=== PATIENT | male | born 1980 | race Caucasian/White ===

== ENCOUNTER 2023-03-15 04:58 | Emergency (ER) | payer SELFPAY ==
[2023-03-15 05:11] VITALS: BP 132/98; PULSE 114; RESP 18; O2SAT 95; BMI 30.3
--- NOTE | 2023-03-15 05:39 | ED.PSYCH1 ---
HPI - Psych General Chief Complaint: Psychiatric Symptoms Stated Complaint: SUDICAL Time Seen by Provider: 03/15/23 05:35 Source: Reports patient Mode of arrival: walk-in Limitations: Reports no limitations History of Present Illness HPI Narrative: Patient states he has relapsed. Drinking alcohol and using drugs (cocaine) . States last drink about 2 hours ago. States he was outside talking to the trees. He hears voices. Voices telling him to kill himself. Brought to the ER by his father. Related Data Allergies Allergy/AdvReac Type Severity Reaction Status Date / Time No Known Drug Allergies Allergy Verified 03/15/23 05:19 Review of Systems ROS Status of ROS 10 or more systems reviewed and unremarkable except as noted in history and below Exam Constitutional Vital Signs - 24 hr 03/15/23 05:11 Pulse Rate [Monitor] 114 H Respiratory Rate 18 Blood Pressure [Right Arm] 132/98 H Pulse Oximetry 95 Oxygen Delivery Method Room Air Common normals: no apparent distress, oriented x3 and alert General appearance: cooperative and well kempt HENMT Common normals: normocephalic and head/scalp atraumatic Eye Common normals: conjunctivae normal and no scleral icterus Respiratory Common normals: normal respiratory effort, no retractions, no use of accessory muscles and clear to auscultation bilaterally Cardio Common normals: regular rate, regular rhythm, S1 normal heart sound and S2 normal heart sound GI Common normals: non-tender Extremity Common normals: normal to inspection and full ROM Neuro Common normals: oriented x3, moves all extremities and no focal motor deficits Psych Common normals: cooperative Attitude: calm Activity/motor behavior: appropriate eye contact Speech: normal speech Memory/cognition: memory grossly intact Insight: fair Course Vital Signs Vital signs: Vital Signs Pulse Rate 114 H 03/15/23 05:11 Respiratory Rate 18 03/15/23 05:11 Blood Pressure 132/98 H 03/15/23 05:11 Pulse Oximetry 95 03/15/23 05:11 Oxygen Delivery Method Room Air 03/15/23 05:11 Pulse Rate 114 H 03/15/23 05:11 Respiratory Rate 18 03/15/23 05:11 Blood Pressure 132/98 H 03/15/23 05:11 Pulse Oximetry 95 03/15/23 05:11 Oxygen Delivery Method Room Air 03/15/23 05:11 MDM - Psych MDM Narrative Medical decision making narrative: polysubstance abuse including alcohol, metamphetamine, cocaine. presents with history of hallucinations and suicide. He states he relapsed. Workup initiated and care transferred to oncoming physician at [facility]. Lab Data Labs: Lab Results 03/15/23 Range/Units 05:35 WBC 7.9 (4.0-11.0) 10^3/uL RBC 5.80 (4.70-6.10) 10^6/uL Hgb 16.1 (14.0-18.0) g/dL Hct 47.4 (42.0-54.0) % MCV 81.7 (80.0-94.0) fL MCH 27.8 (25.9-34.0) pg MCHC 34.0 (29.9-35.2) g/dL RDW 14.8 (11.0-15.0) % Plt Count 275 (150-450) 10^3/uL MPV 9.1 L (9.5-13.5) fL Neut % (Auto) 66.5 (43.0-75.0) % Lymph % (Auto) 22.7 (20.5-60.0) % Bailey % (Auto) 8.3 (1.7-12.0) % Eos % (Auto) 1.5 (0.9-7.0) % Baso % (Auto) 0.5 (0.2-2.0) % Neut # (Auto) 5.3 (1.4-6.5) 10^3/uL Lymph # (Auto) 1.8 (1.2-3.8) 10^3/uL Bailey # (Auto) 0.7 (0.3-0.8) 10^3/uL Eos # (Auto) 0.1 (0.0-0.7) 10^3/uL Baso # (Auto) 0.0 (0.0-0.1) 10^3/uL Abs Immat Gran (auto) 0.04 H (0.00-0.03) 10^3/uL Imm/Tot Granulo (auto) 0.5 (0.0-0.5) % PT 10.7 (9.0-11.6) sec INR 1.01 Sodium 137 (136-145) mmol/L Potassium 4.0 (3.5-5.1) mmol/L Chloride 103 (98-107) mmol/L Carbon Dioxide 28.1 (21.0-32.0) mmol/L Anion Gap 9.9 BUN 5.0 L (7.0-18.0) mg/dL Creatinine 1.39 H (0.70-1.30) mg/dL Est GFR ( Amer) >60 (>=60) Est GFR (Non-Af Amer) 56 L (>=60) BUN/Creatinine Ratio 3.6 Glucose 98 (74-106) mg/dL Calcium 9.0 (8.5-10.1) mg/dL Magnesium 2.1 (1.8-2.4) mg/dL Total Bilirubin 0.5 (0.2-1.0) mg/dL AST 20 (15-37) U/L ALT 25 (16-63) U/L Alkaline Phosphatase 79 (46-116) U/L Ammonia 54 H* (11-32) umol/L Total Protein 7.5 (6.4-8.2) g/dL Albumin 3.5 (3.4-5.0) g/dL Globulin 4.0 g/dL Albumin/Globulin Ratio 0.9 Salicylates <2.8 (<=19.9) mg/dL Urine Opiates Screen Negative (NEGATIVE) Ur Buprenorphine Scrn Negative (NEGATIVE) Ur Oxycodone Screen Negative (NEGATIVE) Urine Methadone Screen Negative (NEGATIVE) Ur Propoxyphene Screen Negative (NEGATIVE) Acetaminophen <2.0 L (10.0-30.0) ug/mL Ur Barbiturates Screen Negative (NEGATIVE) U Tricyclic Antidepress Negative (NEGATIVE) Ur Phencyclidine Scrn Negative (NEGATIVE) Ur Amphetamines Screen Positive A (NEGATIVE) U Methamphetamines Scrn Positive A (NEGATIVE) U Benzodiazepines Scrn Positive A (NEGATIVE) Urine Cocaine Screen Positive A (NEGATIVE) U Cannabinoids Screen Negative (NEGATIVE) Ethanol Quant 101 mg/dL Discharge Plan Discharge Chief Complaint: Psychiatric Symptoms Clinical Impression: Acute psychosis, Polysubstance abuse Referrals: Physician,Non-Staff, [Primary Care Provider] - 1 week
--- NOTE | 2023-03-15 05:45 | ECG_ITS ---
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
[2023-03-15 06:05] LABS: Basophils Percent Auto 0.5 % (0.2-2.0); Eosinophils Absolute Auto 0.1 10^3/uL (0.0-0.7); Eosinophils Percent Auto 1.5 % (0.9-7.0); Hematocrit 47.4 % (42.0-54.0); Hemoglobin 16.1 g/dL (14.0-18.0); Immature Granulocytes Abs Auto 0.04 10^3/uL (0.00-0.03); Immature Granulocytes Pct Auto 0.5 % (0.0-0.5); Lymphocytes Absolute Auto 1.8 10^3/uL (1.2-3.8); Lymphocytes Percent Auto 22.7 % (20.5-60.0); Mean Corpuscular Hemoglobin 27.8 pg (25.9-34.0); Mean Corpuscular Volume 81.7 fL (80.0-94.0); Mean Platelet Volume 9.1 fL (9.5-13.5); Monocytes Absolute Auto 0.7 10^3/uL (0.3-0.8); Monocytes Percent Auto 8.3 % (1.7-12.0); Neutrophils Absolute Auto 5.3 10^3/uL (1.4-6.5); Neutrophils Percent Auto 66.5 % (43.0-75.0); Platelet Count 275 10^3/uL (150-450); Red Cell Distribution Width 14.8 % (11.0-15.0); White Blood Count 7.9 10^3/uL (4.0-11.0)
[2023-03-15 06:12] LABS: INR 1.01; Prothrombin Time 10.7 sec (9.0-11.6)
[2023-03-15 06:14] LABS: Alanine Aminotransferase 25 U/L (16-63); Albumin Globulin Ratio 0.9; Albumin Level 3.5 g/dL (3.4-5.0); Alkaline Phosphatase 79 U/L (46-116); Anion Gap 9.9; Aspartate Amino Transferase 20 U/L (15-37); BUN Creatinine Ratio 3.6; Bilirubin Total 0.5 mg/dL (0.2-1.0); Carbon Dioxide 28.1 mmol/L (21.0-32.0); Chloride 103 mmol/L (98-107); Estimated GFR (African America >60 (>=60); Estimated GFR (Non-African Ame 56 (>=60); Ethanol 101 mg/dL; Glucose 98 mg/dL (74-106); Magnesium 2.1 mg/dL (1.8-2.4); Salicylate <2.8 mg/dL (<=19.9); Sodium 137 mmol/L (136-145); Total Protein 7.5 g/dL (6.4-8.2)
[2023-03-15 06:21] LABS: Acetaminophen <2.0 ug/mL (10.0-30.0)
[2023-03-15 06:24] LABS: Amphetamine Screen Urine POSITIVE (NEGATIVE); Barbiturates Screen Urine NEGATIVE (NEGATIVE); Benzodiazepines Screen Urine POSITIVE (NEGATIVE); Buprenorphine Screen Urine NEGATIVE (NEGATIVE); Cannabinoid Screen Urine NEGATIVE (NEGATIVE); Cocaine Screen Urine POSITIVE (NEGATIVE); Methadone Screen Urine NEGATIVE (NEGATIVE); Methamphetamines Screen Urine POSITIVE (NEGATIVE); Opiate Screen Urine NEGATIVE (NEGATIVE); Oxycodone Screen Urine NEGATIVE (NEGATIVE); Phencyclidine Screen Urine NEGATIVE (NEGATIVE); Tricyclic Antidepressant Urine NEGATIVE (NEGATIVE)
[2023-03-15 06:30] LABS: Ammonia 54 umol/L (11-32)
--- NOTE | 2023-03-15 07:15 | PC.NURSE ---
PT VIDEO-CHATTING WITH DANE FROM [facility] AT THIS TIME
[2023-03-15 07:34] VITALS: RESP 18; O2SAT 100
[2023-03-15 09:42] VITALS: RESP 16; O2SAT 100
[2023-03-15 11:41] VITALS: BP 122/82; PULSE 87; RESP 16; O2SAT 97
== END 2023-03-15 13:45 ==
PROVIDERS: Emergency Provider Internal Medicine
DX: F23 Brief psychotic disorder (principal); F32.9 Major depressive disorder, single episode, unspecified; F10.10 Alcohol abuse, uncomplicated; F15.10 Other stimulant abuse, uncomplicated; F14.10 Cocaine abuse, uncomplicated
CPT/HCPCS: 36415; 80053; 80179; 80307; 80320; 80329; 82140; 83735; 85025; 85610; 93005; 99285

== ENCOUNTER 2023-04-26 10:45 | Emergency (ER) | payer MEDICAID, SELFPAY ==
[2023-04-26 10:47] VITALS: BP 133/86; PULSE 100; RESP 18; TEMP 36.4; O2SAT 97; BMI 30.7
[2023-04-26 10:51] VITALS: BP 133/86
--- NOTE | 2023-04-26 11:22 | ECG_ITS ---
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
[2023-04-26 11:36] VITALS: PULSE 96; RESP 21
[2023-04-26] MEDS: 0.9 % SODIUM CHLORIDE 1,000 ML 999 ML IV (11:41)
[2023-04-26 11:45] LABS: Basophils Percent Auto 0.5 % (0.2-2.0); Eosinophils Absolute Auto 0.1 10^3/uL (0.0-0.7); Eosinophils Percent Auto 1.3 % (0.9-7.0); Hematocrit 47.6 % (42.0-54.0); Hemoglobin 16.2 g/dL (14.0-18.0); Immature Granulocytes Abs Auto 0.04 10^3/uL (0.00-0.03); Immature Granulocytes Pct Auto 0.5 % (0.0-0.5); Lymphocytes Absolute Auto 1.2 10^3/uL (1.2-3.8); Lymphocytes Percent Auto 14.2 % (20.5-60.0); Mean Corpuscular Volume 82.2 fL (80.0-94.0); Mean Platelet Volume 8.4 fL (9.5-13.5); Monocytes Absolute Auto 0.5 10^3/uL (0.3-0.8); Monocytes Percent Auto 5.5 % (1.7-12.0); Neutrophils Absolute Auto 6.8 10^3/uL (1.4-6.5); Platelet Count 254 10^3/uL (150-450); Red Blood Count 5.79 10^6/uL (4.70-6.10); Red Cell Distribution Width 13.2 % (11.0-15.0); White Blood Count 8.7 10^3/uL (4.0-11.0)
[2023-04-26 11:52] LABS: Anion Gap 9.1; BUN Creatinine Ratio 7.7; Calcium 8.5 mg/dL (8.5-10.1); Carbon Dioxide 28.4 mmol/L (21.0-32.0); Chloride 102 mmol/L (98-107); Estimated GFR (African America >60 (>=60); Estimated GFR (Non-African Ame 50 (>=60); Glucose 92 mg/dL (74-106); Potassium 4.5 mmol/L (3.5-5.1); Sodium 135 mmol/L (136-145)
[2023-04-26 12:00] VITALS: PULSE 91; RESP 19; O2SAT 95
--- NOTE | 2023-04-26 12:06 | ED_ITS ---
HPI - General Adult General Chief complaint: Dizziness Stated complaint: POSS. DEHYRDRATION/SHAKY Time Seen by Provider: 04/26/23 11:00 Source: patient Mode of arrival: walk-in Limitations: no limitations History of Present Illness HPI narrative: working in a hot environment all week and then drank a 12 pack of beer this weekend. Now he feels dehydrated - vague dizziness when standing quickly and dried out . he drank 2 bottles of electrolyte solution this morning but didn't feel any better. No headache, blurred vision, tinnitis, ear pain, sore throat or cough. No muscle aches, abdominal pain, N/V/D. No recent fall or injury. Related Data Home Medications Medication Instructions Recorded Confirmed buspirone 5 mg tablet 5 mg PO BID 04/26/23 04/26/23 hydroxyzine HCl 10 mg tablet 10 mg PO Q8H 04/26/23 04/26/23 hydroxyzine pamoate 25 mg capsule 25 mg PO BID 04/26/23 04/26/23 (Vistaril) Allergies Allergy/AdvReac Type Severity Reaction Status Date / Time No Known Drug Allergies Allergy Verified 03/15/23 05:19 Exam Narrative Exam Narrative: Nurses notes and vital signs reviewed and patient is not hypoxic. afebrile General: Well-appearing and in no apparent distress. Skin: Warm, dry, no pallor noted. No rash. Eye: Pupils are equal, round and EOMI. No scleral icterus. Ears, Nose, Mouth, and Throat: Oral mucosa is dry Cardiovascular: Regular Rate and Rhythm without murmur, gallop or rub. Respiratory: No accessory muscle use or respiratory distress. Lungs are clear to auscultation, no wheezing, rales or rhonchi Musculoskeletal: normal ROM, no calf or popliteal tenderness, no lower extremity edema/swelling GI: Abdomen is soft, non-distended. Normal bowel sounds. No tenderness to palpation. No rebound, guarding, or rigidity noted. Neurological: A&O x4. No cranial nerve dysfunction observed. No truncal ataxia. Moves all extremities. Sensation intact. Psychiatric: Cooperative and interactive. Normal mood and affect. Constitutional Vital Signs, click to edit/add: Last Vital Signs Temp 97.6 F 04/26/23 10:47 Pulse 100 H 04/26/23 10:47 Resp 18 04/26/23 10:47 BP 133/86 04/26/23 10:47 Pulse Ox 97 04/26/23 10:47 O2 Del Method Room Air 04/26/23 10:47 Course Vital Signs Vital signs: Vital Signs Temperature 97.6 F 04/26/23 10:47 Pulse Rate 100 H 04/26/23 10:47 Respiratory Rate 18 04/26/23 10:47 Blood Pressure 133/86 04/26/23 10:47 Pulse Oximetry 97 04/26/23 10:47 Oxygen Delivery Method Room Air 04/26/23 10:47 Temperature 97.6 F 04/26/23 10:47 Pulse Rate 100 H 04/26/23 10:47 Respiratory Rate 18 04/26/23 10:47 Blood Pressure 133/86 04/26/23 10:47 Pulse Oximetry 97 04/26/23 10:47 Oxygen Delivery Method Room Air 04/26/23 10:47 Medical Decision Making MDM Narrative Medical decision making narrative: peripheral IV established and blood drawn and sent for testing. The patient received normal saline IV fluid. EKG and blood tests were fairly unremarkable. He had slight elevation of his creatinine. He was informed of results and discharged home with recommendation to avoid alcohol and increase his water intake Lab Data Lab results reviewed: Yes I reviewed the patient's lab results Labs: Lab Results 04/26/23 Range/Units 11:33 WBC 8.7 (4.0-11.0) 10^3/uL RBC 5.79 (4.70-6.10) 10^6/uL Hgb 16.2 (14.0-18.0) g/dL Hct 47.6 (42.0-54.0) % MCV 82.2 (80.0-94.0) fL MCH 28.0 (25.9-34.0) pg MCHC 34.0 (29.9-35.2) g/dL RDW 13.2 (11.0-15.0) % Plt Count 254 (150-450) 10^3/uL MPV 8.4 L (9.5-13.5) fL Neut % (Auto) 78.0 H (43.0-75.0) % Lymph % (Auto) 14.2 L (20.5-60.0) % [place] % (Auto) 5.5 (1.7-12.0) % Eos % (Auto) 1.3 (0.9-7.0) % Baso % (Auto) 0.5 (0.2-2.0) % Neut # (Auto) 6.8 H (1.4-6.5) 10^3/uL Lymph # (Auto) 1.2 (1.2-3.8) 10^3/uL [place] # (Auto) 0.5 (0.3-0.8) 10^3/uL Eos # (Auto) 0.1 (0.0-0.7) 10^3/uL Baso # (Auto) 0.0 (0.0-0.1) 10^3/uL Abs Immat Gran (auto) 0.04 H (0.00-0.03) 10^3/uL Imm/Tot Granulo (auto) 0.5 (0.0-0.5) % Sodium 135 L (136-145) mmol/L Potassium 4.5 (3.5-5.1) mmol/L Chloride 102 (98-107) mmol/L Carbon Dioxide 28.4 (21.0-32.0) mmol/L Anion Gap 9.1 BUN 12.0 (7.0-18.0) mg/dL Creatinine 1.55 H (0.70-1.30) mg/dL Est GFR ( Amer) >60 (>=60) Est GFR (Non-Af Amer) 50 L (>=60) BUN/Creatinine Ratio 7.7 Glucose 92 (74-106) mg/dL Calcium 8.5 (8.5-10.1) mg/dL ECG Data Interpretation: EKG interpretation: Emergency Department physician interpretation. Normal sinus rhythm at 94bpm. Normal axis, normal intervals and non-specific T wave changes with no ST segment elevation or depression. Discharge Plan Discharge Chief Complaint: Dizziness Clinical Impression: Dehydration Patient Disposition: Home, Self-Care Time of Disposition Decision: 12:10 Prescriptions / Home Meds: No Action hydroxyzine pamoate [Vistaril] 25 mg capsule 25 mg PO BID buspirone 5 mg tablet 5 mg PO BID hydroxyzine HCl 10 mg tablet 10 mg PO Q8H Instructions: Dehydration (ED) Stand Alone Forms: Portal Instructions Referrals: Physician,Non-Staff, MD [Primary Care Provider] - 1 week
== END 2023-04-26 12:32 | disposition home or self-care (01) ==
PROVIDERS: Emergency Provider Emergency Medicine
DX: E86.0 Dehydration (principal); Z79.899 Other long term (current) drug therapy
CPT/HCPCS: 36415; 80048; 85025; 93005; 99284

== ENCOUNTER 2025-04-02 11:51 | Emergency (ER) | payer OTHER, SELFPAY ==
[2025-04-02 11:55] VITALS: BP 134/76; PULSE 69; TEMP 36.3; O2SAT 95; BMI 34.9
--- OUTSIDE RECORDS SUMMARY | 2025-04-02 12:07 | XMS_ITS | Clinical Summary ---
Author Organization [facility] Address [address] [place] [address] Care Team Providers Care Lane Marker Installer Name Role Phone Pcp, No MD Primary Care Provider Unavailabl e Allergies No known active allergies Medications azithromycin (ZITHROMAX) 250 mg tablet 500mg PO on Day #1, then 250mg PO QD on Day #2--5 6 tablet 9 Active cetirizine (ZyrTEC) 10 mg tablet Take 1 tablet (10 mg) by mouth daily for 7 days. 7 tablet 9 Active mometasone (NASONEX) 50 mcg/actuation nasal spray 2 sprays into each nostril daily for 14 days. 1 Bottle 9 Active ibuprofen (ADVIL,MOTRIN) 600 mg tablet Take 1 tablet (600 mg) by mouth 4 (four) times a day as needed for mild pain or moderate pain. 20 tablet 9 Active naproxen (NAPROSYN) 500 mg tablet Take 1 tablet (500 mg) by mouth every 8 (eight) hours as needed for mild pain or moderate pain 30 tablet 1 Active cyclobenzaprine (FLEXERIL) 10 mg tablet Take 1 tablet (10 mg) by mouth 3 (three) times a day as needed for muscle spasms 30 tablet 1 Active promethazine (PHENERGAN) 25 mg tabletIndications:V iral gastroenteritis Take 1 tablet (25 mg) by mouth every 6 (six) hours as needed for nausea or vomiting for up to 5 days 10 tablet 4 Active Social History Tobacco Use Types Packs/Day Years Used Date Smoking Tobacco: Every Day Smokeless Tobacco: Never Alcohol Use Standard Drinks/Week Comments No 0 (1 standard drink = 0.6 oz pur e alcohol) former Intimate Partner Violence Answer Date R ecorded Fear of Current or Ex-Partner Not asked Emotionally Abused Not asked 12/01/2020 Physically Abused Not asked 12/01/2020 Sexually Abused Not asked 12/01/2020 Social Connections Answer Date Recorded Frequency of Communication with Friends and Fami ly Not asked 12/01/2020 Frequency of Social Gatherings with Friends and Family Not asked 12/01/2020 Housing Stability Answer Date Recorded Was there a time when you di d not have a steady place to sleep Unrecognized value 11/21/[address] you a re staying is making you sick Unrecognized value 11/21/2021 Sex and Gender Information Value Date Recorded Sex Assigned at Not on file Legal Sex Male 10:10 AM EDT Gender Identity Not on file Sexual Orientation Not on file Last Filed Vital Signs Vital Sign Reading Time Taken Comments Blood Pressure 130/90 07/18/2024 12:11 PM EST Pulse 85 07/18/2024 12:11 PM EST Temperature 36.7 C (98 F) 07/18/2024 12:11 PM EST Respiratory Rate 20 07/18/2024 12:11 PM EST Oxygen Saturation 98% 07/18/2024 12:11 PM EST Inhaled Oxygen Concentration - - Weight 112 kg (247 lb) 07/18/2024 12:11 PM EST Height 180.3 cm (5' 11 ) 07/18/2024 12:11 PM EST Body Mass Index 34.45 07/18/2024 12:11 PM EST Plan of Treatment Health Maintenance Due Date Last Done Comments Hepatitis C Screening 1980 SDOH Part 1 1980 Adult Tdap 2000 Hepatitis B Vaccines (1 of 3 - 19+ 3-dose series) 2000 Pneumococcal (1 of 2 - PCV) 2000 HPV Vaccine (1 - 3-dose SCDM series) 2008 COVID-19 Vaccine ( - season) 2024, 12/24/2020 Depression Screening 09/14/2024 Tobacco Screening 09/14/2024 Influenza Vaccine (#1) 2025 Zoster Vaccine (1 of 2) 2031 Insurance [employer]BS [employer] PREFERRED BLUE [id number] Care Teams [address] Marker Installer Relationship Specialty Start Date End Date Pcp, Chloe, [place] [address] PCP - General 09/30/18
--- OUTSIDE RECORDS SUMMARY | 2025-04-02 12:07 | XMS_ITS | Encounter Summary ---
Author Organization [facility] Address [address] [place] [address] Care Team Providers Care First Aid Attendant Name Role Phone Pcp, No Primary Care Provider Unavailabl e Encounter Details Date Type Department Care Team (Late st Contact Info) Description 08/19/2024 [facility] [address] [place] [address] Provider, Med History Social History Tobacco Use Types Packs/Day Years Used Date Smoking Tobacco: Never Smokeless Tobacco: Never Alcohol Use Standard Drinks/Week Comments Never 0 (1 standard drink = 0.6 oz pur e alcohol) AUDIT-C Answer Date Recorded Q1: How often do you have a drink containing alcohol? Never 08/18/2024 Q2: How many drinks containi ng alcohol do you have on a typical day when you are drinking? Patient does not drink Q3: How often do you have si x or more drinks on one occasion? Never 08/18/2024 Sex and Gender Information Value Date Recorded Sex Assigned at Not on file Legal Sex Male 10:43 AM EDT Gender Identity Not on file Sexual Orientation Not on file documented as of this encounter Plan of Treatment Not on file documented as of this encounter Procedures Procedure Name Priority Date/Time Associated Diagnosis Comments [facility] ED DISCHARGE CALL 08/19/2024 2:10 PM EST documented in this encounter Results * ED Discharge Call (08/19/2024 2:10 PM EST) Outreach Action Voice Call 1 [facility] Call Attempt 4 [facility] Status incomplete [facility] 08/19/2024 2:10 PM EST us Med History Provider [facility] FOLLOW UP CALL Final Result [facility] Ale[address] [place] [address] documented in this encounter Visit Diagnoses Not on filedocumented in this encounter Care Teams First Aid Attendant Relationship Specialty Start Date End Date Pcp, No PCP - General 07/06/24 documented as of this encounter
--- OUTSIDE RECORDS SUMMARY | 2025-04-02 12:07 | XMS_ITS | Encounter Summary ---
Author Organization [facility] Address [address] [place] [address] Care Team Providers Care Senior Manufacturing Test Engineer Name Role Phone Pcp, No Primary Care Provider Unavailabl e Encounter Details Date Type Department Care Team (Late st Contact Info) Description 08/19/[facility] [address] [place] [address] Provider, Med History Social History Tobacco Use [...] Diagnosis Comments [facility] ED DISCHARGE CALL 08/19/2024 9:11 AM EST documented in this encounter Results * ED Discharge Call (08/19/2024 9:11 AM EST) Outreach Action Voice Call 1 [facility] Call Attempt 2 [facility] Status incomplete [facility] 08/19/2024 9:11 AM EST us Med History Provider CIPHER FOLLOW UP CALL Final Result [facility] Aleisha [address] [place] [address] documented in this encounter Visit Diagnoses Not on filedocumented in this encounter Care Teams Senior Manufacturing Test Engineer Relationship Specialty Start Date End Date Pcp, No PCP - General 07/06/24 documented as of this encounter
--- OUTSIDE RECORDS SUMMARY | 2025-04-02 12:07 | XMS_ITS | Clinical Summary ---
Author Organization [facility] tem Address [id number] [address] [place] [address] Care Team Providers Care Manager Video Name Role Phone No Pcp, No Pcp Primary Care Provider Unavailabl e Allergies No known active allergies Medications No known medications Social History Tobacco Use Types Packs/Day Years Used Date Smoking Tobacco: Never Smokeless Tobacco: Never Tobacco Cessation:Counseling Given: Not Answered Alcohol Use Standard Drinks/Week Comments Yes 0 (1 standard drink = 0.6 oz pur e alcohol) Childcare Answer Date Recorded Childcare Unknown 02/23/2019 Employment Answer Date Recorded Employment Unknown 02/23/2019 Hunger Screening Answer Date Recorded Within the past 12 months we worried whether our food would run out before we got money to buy more. Never True 05/04/2023 Within the past 12 months th e food we bought just didn't last and we didn't have money to get more. Never True 05/04/2023 Sex and Gender Information Value Date Recorded Sex Assigned at Not on file Legal Sex Male 11:56 AM EDT Gender Identity Not on file Sexual Orientation Not on file Last Filed Vital Signs Vital Sign Reading Time Taken Comments Blood Pressure 126/70 05/04/2023 7:00 PM EDT Pulse 111 05/04/2023 7:00 PM EDT Temperature 36.7 C (98.1 F) 05/04/2023 3:44 PM EDT Respiratory Rate 24 05/04/2023 7:00 PM EDT Oxygen Saturation 94% 05/04/2023 7:00 PM EDT Inhaled Oxygen Concentration - - Weight 99.8 kg (220 lb) 05/04/2023 3:44 PM EDT Height - - Body Mass Index - - Plan of Treatment Not on file Medical Devices Not on file Insurance [place] [facility] Care Teams Manager Video Relationship Specialty Start Date End Date No Pcp, [place] [id number] PCP - General Family Medicine 05/04/23
--- OUTSIDE RECORDS SUMMARY | 2025-04-02 12:07 | XMS_ITS | Clinical Summary ---
Author Organization [facility] Address [address] [place] [address] Care Team Providers Care Acid Changer Name Role Phone Pcp, No Primary Care Provider Unavailabl e Allergies No known active allergies Social History Tobacco Use Types Packs/Day Years Used Date Smoking Tobacco: Never Smokeless Tobacco: Never Tobacco Cessation:Counseling Given: Not Answered Alcohol Use Standard Drinks/Week Comments Never 0 [...] Sign Reading Time Taken Comments Blood Pressure 128/84 08/18/2024 5:27 PM EST Pulse 80 08/18/2024 5:27 PM EST Temperature 36.9 C (98.4 F) 08/18/2024 5:27 PM EST Respiratory Rate 18 08/18/2024 5:27 PM EST Oxygen Saturation 98% 08/18/2024 7:33 PM EST Inhaled Oxygen Concentration - - Weight - - Height - - Body Mass Index - - Plan of Treatment Health Maintenance Due Date Last Done Comments COVID-19 Vaccine (2023-2 5 season) 2024 09/11/2021, 01/04/2021, 12/24/2020 Influenza Vaccine (#1) 2025 2, 07/08/2021 Pneumococcal 6-49 years Aged Out 09/14/2000 No l lilyger eligible based on patient's age to complete this topic Insurance [employer] Care Teams Acid Changer Relationship Specialty Start Date End Date Pcp, No PCP - General 07/06/24
--- OUTSIDE RECORDS SUMMARY | 2025-04-02 12:07 | XMS_ITS | Clinical Summary ---
Author Organization [facility] Address [address] [place] [address] Care Team Providers Care Auto Rental Supervisor Name Role Phone Amisha Raymundo Primary Care Provider [phone] Source Comments PLEASE NOTE, if this patient is a minor, it may be UNLAWFUL to discuss sensitive information that is contained in these records (such as FAMILY PLANNING, MENTAL HEALTH or SUBSTANCE ABUSE) with the minor patient's parent or other person without the patient's specific authorization.[facility] Allergies No known active allergies Medications hydrOXYzine HCL (ATARAX) 50 mg tabletIndications: Anxiety state Take 1 Tablet by mouth 3 (three) times daily as needed for anxiety 270 Tablet 1 5 Active pravastatin (PRAVACHOL) 40 mg tabletIndications: Mixed hyperlipidemia Take 1 Tablet by mouth once daily 90 Tablet 1 5 Active lisinopriL 20 mg tabletIndications: Essential hypertension Take 1 Tablet by mouth once daily 90 Tablet 1 5 Active amLODIPine (NORVASC) 10 mg tabletIndications: Essential hypertension Take 1 Tablet by mouth once daily 90 Tablet 1 5 Active testosterone (ANDROGEL) 20.25 mg/1.25 gram (1.62 %) gel pumpIndications: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 90 Tablet 1 5 Active sertraline (ZOLOFT) 50 mg tabletIndications: Anxiety state Take 1 Tablet by mouth once daily 90 Tablet 1 5 025 Discontinu ed(Reorder (E-Cancel Not Sent)) naproxen (NAPROSYN) 500 mg tabletIndications: Chronic right-sided low back pain without sciatica Take 1 Tablet by mouth 2 (two) times daily with a meal for 14 days. 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 ([facility] V24) 12/14/2020 Essential hypertension 12/30/2019 Anxiety and depression 12/30/2019 Encounters Date Type Department Care Team Description 03/13/2025 4:00 PM EDT Office Visit [address] [id number] [place] 03/13/2025 Travel from Last 3 Months Immunizations Immunization Administration Dates Next Due Hep A, adult 12/26/2019 PFIZER COVID VACCINE, PURPLE CAP, 12+ 01/04/2021 ,12/24/2020 PNEUMOCOCCAL, UNSPECIFIED FORMULATION 09/14/2000 Tetanus Toxoid, Absorbed 09/14/2000 Family History Medical History Relation Name Comments Alcohol/Drug Abuse Brother Alcohol/Drug Abuse Father Depression Father Alcohol/Drug Abuse Mother Depression Mother Relation Name Status Comments Brother Father Mother Social History Tobacco Use Types Packs/Day Years Used Date Smoking Tobacco: Former Cigarettes 0 01/18/2020 - 01/17/2021 Passive Smoke Exposure: Never Smokeless Tobacco: Never Tobacco Cessation:Counseling Given: Not Answered Alcohol Use Standard Drinks/Week Comments Not Currently 0 (1 standard drink = 0.6 oz pur e alcohol) Social Connections Answer Date Recorded Connectedness 0 06/18/2024 Financial Resource Strain Answer Date R ecorded Financial Resource Strain 0 2018 Stress Answer Date Recorded Stress 0 2019 Physical Activity Answer Date Recorded Physical Activity 0 2019 Food Insecurity Answer Date Recorded Food 0 06/09/2024 Transportation Needs Answer Date Record ed Transportation 0 2019 Housing Stability Answer Date Recorded Housing 0 2019 Safety and Environment Answer Date Fernando rded Safety 0 2019 Utilities Answer Date Recorded Utilities 0 2019 Employment Answer Date Recorded Stress 0 06/18/2024 Sex and Gender Information Value Date Recorded Sex Assigned at Male 2019 11:47 AM PST Legal Sex Male 6:30 AM PST Gender Identity Male 2019 11:15 AM PST Sexual Orientation Straight 2019 11 :15 AM PST Last Filed Vital Signs Vital Sign Reading Time Taken Comments Blood Pressure 128/82 03/13/2025 3:51 PM EDT Pulse 77 03/13/2025 3:51 PM EDT Temperature 36 C (96.8 F) 03/13/2025 3:51 PM EDT Respiratory Rate 19 03/13/2025 3:51 PM EDT Oxygen Saturation 94% 03/13/2025 3:51 PM EDT Inhaled Oxygen Concentration - - Weight 115.9 kg (255 lb 9.6 oz) 03/13/2025 3:51 PM EDT Height 180.3 cm (5' 11 ) 11/25/2024 4:34 PM EDT Body Mass Index 35.65 11/25/2024 4:34 PM EDT Plan of Treatment Upcoming Encounters Date Type Department Care Team (Late st Contact Info) Description 04/12/2025 4:00 PM EDT Office Visit [address] [phone] [address] Health Maintenance Due Date Last Done Comments Imm-DTaP/Tdap/Td (1 - Tdap) 2000 Imm-Hepatitis B (1 of 3 - 19 + 3-dose series) 2000 Syphilis Screening 02/15/2024 02/14/2023 Depression Monitoring 06/13/2025 03/13/2025 , 07/15/2024, 11/18/2023, Additional history exists Lipid Screening 09/09/2025 09/09/2024, 06/17/2023 Anxiety Screening 03/13/2026 03/13/2025 Tobacco Screening 03/13/2026 03/13/2025 Diabetes Screening 09/09/2027 09/09/2024, 1 , 02/03/2024, Additional history exists [id number] Discontinued 09/11/2021, 04/2 11/2020, 12/24/2020 Imm-Influenza Discontinued 07/01/2022, 07/08/2021 Alcohol and Drug Screen Completed 11/26/19, 11/18/2023, 05/20/2023, Additional history exists HIV Screening Discontinued Hepatitis C Screening Discontinued Procedures Procedure Name Priority Date/Time Associated Diagnosis Comments COMPREHENSIVE METABOLIC PANEL Routine 09/09/2024 9:12 AM EST Essential hypertension LIPID PANEL WITH LDL:HDL RATIO Routine 09/09/2024 9:12 AM EST Mixed hyperlipidemia from Last 3 Months or Most Recently Relevant to Health Maintenance Results * (ABNORMAL) LIPID PANEL WITH LDL:HDL RATIO (09/09/2024 9:12 AM EST) CHOLESTEROL, TOTAL 158 100 - 199 mg/dL [facility] TRIGLYCERIDES 142 0 - 149 mg/dL [facility] HDL CHOLESTEROL 33(L) >39 mg/dL [facility] VLDL CHOLESTEROL SANTOSH 25 5 - 40 mg/dL [facility] LDL CHOL CALC (NIH) 100(H) 0 - 99 mg/dL [facility] LDL/HDL RATIO 3.0 0.0 - 3.6 ratio [facility] Comment: LDL/HDL Ratio Men Women 1/2 Avg.Risk 1.0 1.5 Avg.Risk 3.6 3.2 2X Avg.Risk 6.2 5.0 3X Avg.Risk 8.0 6.1 Blood Blood / Unknown 09/09/2024 9 :12 AM EST 09/09/2024 us Amisha JACINTO LAB - BLOOD DRAW Final Resul t [facility] [address] [place] [address] * (ABNORMAL) COMPREHENSIVE METABOLIC PANEL (09/09/2024 9:12 AM EST) GLUCOSE, SERUM 120(H) 70 - 99 mg/[facility] BUN 9 6 - 24 mg/dL [facility] CREATININE, SERUM 0.97 0.76 - 1.27 mg/dL [facility] eGFR 99 >59 mL/min/1.7 3 [facility] BUN/CREATININE RATIO 9 9 - 20 [facility] SODIUM, SERUM 138 134 - 144 mmol/L [facility] POTASSIUM, SERUM 4.6 3.5 - 5.2 mmol/L [facility] CHLORIDE, SERUM 102 96 - 106 mmol/L [facility] DIOXIDE, TOTAL 23 20 - 29 mmol/L [facility] CALCIUM, SERUM 9.3 8.7 - 10.2 mg/dL [facility] PROTEIN, TOTAL, SERUM 6.5 6.0 - 8.5 g/dL [facility] ALBUMIN, SERUM 4.1 4.1 - 5.1 g/dL [facility] GLOBULIN, TOTAL 2.4 1.5 - 4.5 g/dL [facility] BILIRUBIN, TOTAL <0.2 0.0 - 1.2 mg/dL [facility] ALKALINE PHOSPHATASE, SERUM 66 44 - 121 IU/L [facility] AST (SGOT) 20 0 - 40 IU/L [facility] ALT (SGPT) 23 0 - 44 IU/L [facility] Blood Blood / Unknown 09/09/2024 9 :12 AM EST 09/09/2024 Amisha JACINTO LAB - BLOOD DRAW Final Resul t [facility] [address] [place] [address] from Last 3 Months or Most Recently Relevant to Health Maintenance Insurance [facility] Member Subscriber Plan / Payer (Ef fective 2025-Present) Name:AllanChato terry Relation to Subscriber:Self Name:Chato Zazueta Payer ID:[id number] Group ID:Not on file Type:Indemnity Address: [facility] [id number] [phone] Care Teams Auto Rental Supervisor Relationship Specialty Start Date End Date Amisha Raymundo PA [address] [place] [phone] PCP - General [facility] 08/17/23
--- OUTSIDE RECORDS SUMMARY | 2025-04-02 12:07 | XMS_ITS | Encounter Summary ---
Author Organization [facility] Address [address] [place] [address] Care Team Providers Care Supply Crib Attendant Name Role Phone Pcp, No Primary Care Provider Unavailabl e Encounter Details Date Type Department Care Team (Late st Contact Info) Description 08/22/2024 [facility] [address] [place] [address] Provider, Med History Social History Tobacco Use [...] Associated Diagnosis Comments [facility] ED DISCHARGE CALL 08/22/2024 9:08 AM EST documented in this encounter Results * ED Discharge Call (08/22/2024 9:08 AM EST) Outreach Action Voice Call 1 [facility] Call Attempt 5 [facility] Status hangup [facility] 08/22/2024 9:08 AM EST us Med History Provider [facility] FOLLOW UP CALL Final Result Performing Organization Address [facility]/State/ZIP Co de Phone Number [facility] Aleisha [address] [place] [address] documented in this encounter Visit Diagnoses Not on filedocumented in this encounter Care Teams Supply Crib Attendant Relationship Specialty Start Date End Date Pcp, No PCP - General 07/06/24 documented as of this encounter
--- OUTSIDE RECORDS SUMMARY | 2025-04-02 12:07 | XMS_ITS | Encounter Summary ---
Author Organization [facility] Address [address] [place] [address] Care Team Providers Care Pharmaceutical Salesperson Name Role Phone Pcp, No Primary Care Provider Unavailabl e Encounter Details Date Type Department Care Team (Late st Contact Info) Description [facility]/07/[facility] [address] [place] [address] Sergio Salcido MD [address] [place], [place] [id number] Social History Tobacco Use Types Packs/Day Years Used Date Smoking Tobacco: Never Smokeless Tobacco: Never Alcohol Use Standard Drinks/Week Comments Never 0 (1 standard drink = 0.6 oz pur e alcohol) Sex and Gender Information Value Date Recorded Sex Assigned at Not on file Legal Sex Male 10:43 AM EDT Gender Identity Not on file Sexual Orientation Not on file documented as of this encounter Plan of Treatment Not on file documented as of this encounter Procedures Procedure Name Priority Date/Time Associated Diagnosis Comments [facility] ED DISCHARGE CALL 07/07/2024 9:16 AM EDT documented in this encounter Results * ED Discharge Call (07/07/2024 9:16 AM EDT) Outreach Action Voice Call 1 [facility] Call Attempt 2 [facility] Status incomplete [facility] 07/07/2024 9:16 AM EDT us Sergio QUIÑONES FOLLOW UP CALL F inal Result [facility] [address] [place] [address] documented in this encounter Visit Diagnoses Not on filedocumented in this encounter Care Teams Pharmaceutical Salesperson Relationship Specialty Start Date End Date Pcp, No PCP - General 07/06/24 documented as of this encounter
--- OUTSIDE RECORDS SUMMARY | 2025-04-02 12:07 | XMS_ITS | Encounter Summary ---
Author Organization [facility] Address [address] [place] [address] Care Team Providers Care Corporate Traffic Manager Name Role Phone Pcp, No Primary Care Provider Unavailabl e Encounter Details Date Type Department Care Team (Late st Contact Info) Description [facility] [address] [place] [address] Provider, Med History Social History Tobacco Use [...] Diagnosis Comments [facility] ED DISCHARGE CALL 08/22/2024 9:16 AM EST documented in this encounter Results * ED Discharge Call (08/22/2024 9:16 AM EST) Outreach Action Voice Call 1 [facility] Call Attempt 6 [facility] Status incomplete [facility] 08/22/2024 9:16 AM EST us Med History Provider CIPHER FOLLOW UP CALL Final Result [facility] Ale[address] [place] [address] documented in this encounter Visit Diagnoses Not on filedocumented in this encounter Care Teams Corporate Traffic Manager Relationship Specialty Start Date End Date Pcp, No PCP - General 07/06/24 documented as of this encounter
--- OUTSIDE RECORDS SUMMARY | 2025-04-02 12:07 | XMS_ITS | Encounter Summary ---
Author Organization [facility] Address [address] [place] [address] Care Team Providers Care Product Managent Intern Name Role Phone Pcp, No Primary Care Provider Unavailabl e Encounter Details Date Type Department Care Team (Late st Contact Info) Description [facility] [address] [place] [address] Provider, Med History Social History Tobacco Use [...] Diagnosis Comments [facility] ED DISCHARGE CALL 08/19/2024 9:06 AM EST documented in this encounter Results * ED Discharge Call (08/19/2024 9:06 AM EST) Outreach Action Voice Call 1 [facility] voice mail [facility] 08/19/2024 9:06 AM EST us Med History Provider CIPHER FOLLOW UP CALL Final Result Performing Organization Address [facility]/State/ZIP Co de Phone Number [facility] Aleisha Gomez [address] [place] [address] documented in this encounter Visit Diagnoses Not on filedocumented in this encounter Care Teams Product Managent Intern Relationship Specialty Start Date End Date Pcp, No PCP - General 07/06/24 documented as of this encounter
--- OUTSIDE RECORDS SUMMARY | 2025-04-02 12:07 | XMS_ITS | Encounter Summary ---
Author Organization [facility] Address [address] [place] [address] Care Team Providers Care Physician Recruiter Name Role Phone Pcp, No Primary Care Provider Unavailabl e Encounter Details Date Type Department Care Team (Late st Contact Info) Description 08/19/[facility] [address] [place] [address] Provider, Med History Social History Tobacco Use [...] Diagnosis Comments [facility] ED DISCHARGE CALL 08/19/2024 2:04 PM EST documented in this encounter Results * ED Discharge Call (08/19/2024 2:04 PM EST) Outreach Action Voice Call 1 [facility] Call Attempt 3 [facility] Status voice mail [facility] 08/19/2024 2:04 PM EST us Med History Provider CIPHER FOLLOW UP CALL Final Result Performing Organization Address [facility]/State/ZIP Co de Phone Number [facility] Aleisha Gomez [address] [place] [address] documented in this encounter Visit Diagnoses Not on filedocumented in this encounter Care Teams Physician Recruiter Relationship Specialty Start Date End Date Pcp, No PCP - General 07/06/24 documented as of this encounter
--- OUTSIDE RECORDS SUMMARY | 2025-04-02 12:07 | XMS_ITS | Encounter Summary ---
Author Organization [facility] Address [address] [place] [address] Care Team Providers Care Senior Construction Estimator Name Role Phone Pcp, No Primary Care Provider Unavailabl e Encounter Details Date Type Department Care Team (Late st Contact Info) Description [facility]07[facility] [address] [place] [address] Sergio Salcido MD [address], [place] [id number] Social History Tobacco Use Types Packs/Day Years [...] Procedure Name Priority Date/Time Associated Diagnosis [facility] 07/07/2024 2:04 PM EDT documented in this encounter Results * ED Discharge Call (07/07/2024 2:04 PM EDT) Outreach Action Voice Call 1 [facility] Call Attempt 3 [facility] Status hangup [facility] 07/07/2024 2:04 PM EDT us Sergio QUIÑONES FOLLOW UP CALL F inal Result [facility] [address] [place] [address] documented in this encounter Visit Diagnoses Not on filedocumented in this encounter Care Teams Senior Construction Estimator Relationship Specialty Start Date End Date Pcp, No PCP - General 07/06/24 documented as of this encounter
--- NOTE | 2025-04-02 14:15 | ED.GENADUL1 ---
HPI HPI - General Adult General Chief complaint: Recheck/Abnormal Lab/Rx Stated complaint: RX REQUEST Time Seen by Provider: 04/02/25 12:01 Source: patient Mode of arrival: walk-in Limitations: no limitations History of Present Illness HPI narrative: The patient is coming to us from [place] he is visiting here for the week and he usually take Zoloft 50 mg at night and he has forgot to pack his medication The patient denies any other complaint he is just here to get Zoloft prescription for the next 7 days Related Data Home Medications �Medication �Instructions �Recorded �Confirmed amlodipine 10 mg tablet 10 mg PO DAILY 04/02/25 04/02/25 hydroxyzine HCl 50 mg tablet 50 mg PO Q8H PRN anxiety 04/02/25 04/02/25 lisinopril 20 mg tablet 20 mg PO DAILY 04/02/25 04/02/25 pravastatin 40 mg tablet 40 mg PO DAILY 04/02/25 04/02/25 Previous Rx's �Medication �Instructions �Recorded sertraline 50 mg tablet (Zoloft) 50 mg PO Q24H #7 tabs 04/02/25 Allergies Allergy/AdvReac Type Severity Reaction Status Date / Time No Known Drug Allergies Allergy Verified 04/02/25 11:54 Opioid HPI Opioid Management Most Recent Opioid Data: Ur Phencyclidine Scrn, (NEGATIVE) Negative 03/15/23, 05:35 Review of Systems ROS Status of ROS 10 or more systems reviewed and unremarkable except as noted in history and below PFSH PFSH Social History Little interest or pleasure in doing things: not at all Feeling down, depressed, or hopeless: not at all Exam Narrative Exam Narrative: Nurses notes and vital signs reviewed and patient is not hypoxic. General: Well-appearing and in no apparent distress. Skin: Warm, dry, no pallor noted. No rash. Head: Normocephalic, atraumatic. Neck: Supple, non-tender. Cardiovascular: Regular Rate and Rhythm without murmur, gallop or rub. Respiratory: No accessory muscle use or respiratory distress. Lungs are clear to auscultation, no wheezing, rales or rhonchi Chest Wall: no tenderness Back: No midline thoracic or lumbar vertebral tenderness. No CVA tenderness Musculoskeletal: normal ROM, no calf or popliteal tenderness, no lower extremity edema/swelling GI: Abdomen is soft, non-distended. Normal bowel sounds. No masses appreciated. No tenderness to palpation. No rebound, guarding, or rigidity noted. Neurological: A&O x4. No cranial nerve dysfunction observed. No truncal ataxia. Moves all extremities. Sensation intact. Psychiatric: Cooperative and interactive. Normal mood and affect. Constitutional Vital Signs, click to edit/add: Last Vital Signs Temp 97.4 F L 04/02/25 11:55 Pulse 69 04/02/25 11:55 Resp 20 04/02/25 11:55 BP 134/76 04/02/25 11:55 Pulse Ox 95 04/02/25 11:55 Course Vital Signs Vital signs: Vital Signs Temperature 97.4 F L 04/02/25 11:55 Pulse Rate 69 04/02/25 11:55 Respiratory Rate 04/02/25 11:55 Blood Pressure 134/76 04/02/25 11:55 Pulse Oximetry 95 04/02/25 11:55 Temperature 97.4 F L 04/02/25 11:55 Pulse Rate 69 04/02/25 11:55 Respiratory Rate 04/02/25 11:55 Blood Pressure 134/76 04/02/25 11:55 Pulse Oximetry 95 04/02/25 11:55 Medical Decision Making MDM Narrative Medical decision making narrative: The patient has his Zoloft 50 mg at night for the next 7 days given to him and he had the instruction to follow-up with his primary care as outpatient when come back to get his medication refilled in the future Patient takes Zoloft mostly for depression The patient is to follow up with primary care physician in next 2-3 days or to return to the emergency department should any of the signs or symptoms worsen or new symptoms develop. The patient agrees with the following Diagnosis and Treatment plan and the patient will be discharged home. Discharge Plan Discharge Chief Complaint: Recheck/Abnormal Lab/Rx Clinical Impression: Medication refill Patient Disposition: Home, Self-Care Time of Disposition Decision: 12:21 Condition: Good Mode of Transportation: Private Vehicle Prescriptions / Home Meds: New sertraline [Zoloft] 50 mg tablet 50 mg PO Q24H Qty: 7 0RF Discontinued sertraline 100 mg tablet 100 mg PO Q24H No Action pravastatin 40 mg tablet 40 mg PO DAILY lisinopril 20 mg tablet 20 mg PO DAILY hydroxyzine HCl 50 mg tablet 50 mg PO Q8H PRN (Reason: anxiety) amlodipine 10 mg tablet 10 mg PO DAILY Print Language: Malay Instructions: Medicine Refill (ED) Referrals: Physician,Non-Staff, MD [Primary Care Provider] - 1 week Discharge Date/Time: 04/02/25 12:27
== END 2025-04-02 12:27 | disposition home or self-care (01) ==
PROVIDERS: Emergency Provider Emergency Medicine
DX: Z76.0 Encounter for issue of repeat prescription (principal); F32.A Depression, unspecified
CPT/HCPCS: 99283